=== PATIENT | male | born 1940 | race Caucasian/White ===

== ENCOUNTER 2016-05-28 07:28 | Inpatient (IN) | payer MEDICARE ==
[~2016-05-28] VITALS: Ht 172.7 cm; Wt 92.8 kg
[2016-05-28] MEDS ORDERED: SODIUM CHLORIDE FLUSH 10ML SYR IVF ONE (08:00)
[2016-05-28] MEDS ORDERED: SODIUM CHLORIDE 0.9% 1,000ML IVBOLUS ONE ×2 (08:00→09:00)
[2016-05-28 08:02] LABS: DAU SCREEN DISCLAIMER
[2016-05-28 08:12] LABS: ABG COLLECTION SITE RIGHT RADIAL; COLLATERAL CIRCULATION TESTING NORMAL
[2016-05-28 08:19] LABS: HEMOGLOBIN 19.6 g/dL (13.7-18.0)
[2016-05-28 08:22] LABS: ASPARTATE AMINO TRANSFERASE 12 U/L (15-37); BLOOD UREA NITROGEN 58 mg/dL (7-18)
[2016-05-28 08:35] LABS: IS PT STATUS REG ER OR PRE ER? YES
[2016-05-28] MEDS ORDERED: INSULIN REGULAR 100 UNITS/ML, 3ML VIAL IVPush ONE (09:00)
[2016-05-28] MEDS ORDERED: REGULAR INSULIN 62.5 UNITS in SODIUM CHLORIDE 0.9% 249.375 ML IV PRN ×2 (09:27→19:03)
[2016-05-28] MEDS ORDERED: INSULIN REGULAR 100 UNITS/ML, 3ML VIAL ONE (09:42)
[2016-05-28 12:11] LABS: BLOOD UREA NITROGEN 49 mg/dL (7-18)
[2016-05-28] MEDS ORDERED: ONDANSETRON 2MG/ML, 2ML IVP PRN (12:30)
[2016-05-28] MEDS ORDERED: DOCUSATE 100 MG CAPSULE PO PRN (12:30)
[2016-05-28] MEDS ORDERED: BISACODYL 10 MG SUPP PR PRN (12:30)
[2016-05-28] MEDS ORDERED: VANCOMYCIN PER PHARMACY MC PRN (12:30)
[2016-05-28] MEDS: SODIUM CHLORIDE 0.9% 1,000 ML IV SCH ×3 (12:56→22:25)
[2016-05-28] MEDS ORDERED: PHARMACOKINETIC CONSULTATION MC ONE (13:00)
[2016-05-28] MEDS ORDERED: PHARMACOKINETIC MONITORING MC PRN (13:00)
[2016-05-28] MEDS: ENOXAPARIN 40 MG/0.4 ML SQ SCH (13:12)
[2016-05-28] MEDS: INSULIN DETEMIR 100 UNITS/ML, PEN SQ-INSULIN SCH (13:14)
[2016-05-28] MEDS ORDERED: NALOXONE 0.4 MG/ML, 1ML ONE (13:16)
[2016-05-28] MEDS ORDERED: NALOXONE 0.4 MG/ML, 1ML IVPush ONE (13:30)
[2016-05-28] MEDS ORDERED: VANCOMYCIN 1,900 MG in SODIUM CHLORIDE 0.9% 250 ML IV ONE (14:00)
[2016-05-28] MEDS: PIPERACILLIN/TAZO/PMX 3.375GM 50 ML IV SCH ×2 (14:08→19:45)
[2016-05-28 16:01] LABS: IS PT STATUS REG ER OR PRE ER? NO
[2016-05-28 16:35] LABS: BLOOD UREA NITROGEN 44 mg/dL (7-18)
[2016-05-28] MEDS ORDERED: LISI2.5T PO (17:33)
[2016-05-28] MEDS ORDERED: HYDR-3307 PO (17:33)
[2016-05-28] MEDS ORDERED: DULO60CA55 PO (17:33)
[2016-05-28] MEDS ORDERED: METF500T4 PO (17:33)
[2016-05-28 17:34] VITALS: BP 148/76
[2016-05-28] MEDS: ASPIRIN 325 MG TABLET PO SCH (17:49)
[2016-05-28] MEDS: MORPHINE SULFATE 4 MG/ML, 1ML IVPush PRN (19:36)
[2016-05-28] MEDS: FAMOTIDINE 20 MG/2 ML IV SCH (20:41)
[2016-05-28] MEDS ORDERED: D5%-0.45% NACL 1,000 ML IV SCH ×2 (21:00)
[2016-05-28] MEDS ORDERED: ATORVASTATIN 20 MG TABLET PO SCH (21:00)
[2016-05-28 21:10] LABS: BLOOD UREA NITROGEN 42 mg/dL (7-18)
[2016-05-28 21:14] LABS: IS PT STATUS REG ER OR PRE ER? NO
[2016-05-28] MEDS ORDERED: SODIUM CHLORIDE 0.9% 1,000 ML IV SCH (22:30)
[2016-05-28] MEDS: INSULIN ASPART 100 UNITS/ML, PEN SQ-INSULIN SCH (23:06)
[2016-05-29] MEDS: MORPHINE SULFATE 4 MG/ML, 1ML IVPush PRN ×2 (01:01→06:37)
[2016-05-29] MEDS: PIPERACILLIN/TAZO/PMX 3.375GM 50 ML IV SCH ×4 (01:24→20:11)
[2016-05-29] MEDS: INSULIN ASPART 100 UNITS/ML, PEN SQ-INSULIN SCH ×6 (03:56→23:30)
[2016-05-29 04:00] VITALS: BP 128/71
[2016-05-29 05:19] LABS: HEMOGLOBIN 16.8 g/dL (13.7-18.0)
[2016-05-29 05:37] LABS: ASPARTATE AMINO TRANSFERASE 21 U/L (15-37); BLOOD UREA NITROGEN 36 mg/dL (7-18)
[2016-05-29] MEDS: ASPIRIN 325 MG TABLET PO SCH (06:17)
[2016-05-29 07:59] LABS: IS PT STATUS REG ER OR PRE ER? NO
[2016-05-29] MEDS: INSULIN DETEMIR 100 UNITS/ML, PEN SQ-INSULIN SCH (09:39)
[2016-05-29] MEDS: FAMOTIDINE 20 MG/2 ML IV SCH ×2 (09:40→20:12)
[2016-05-29] MEDS: SODIUM CHLORIDE 0.9% 1,000 ML IV SCH (11:20)
[2016-05-29] MEDS: ENOXAPARIN 40 MG/0.4 ML SQ SCH (13:54)
[2016-05-29] MEDS ORDERED: MIDAZOLAM 1 MG/ML, 5ML ONE (14:34)
[2016-05-29] MEDS: VANCOMYCIN 1,700 MG in SODIUM CHLORIDE 0.9% 250 ML IV SCH (16:22)
[2016-05-29] MEDS ORDERED: MIDAZOLAM 1 MG/ML, 2ML IVPush ONE (16:30)
[2016-05-29 19:37] VITALS: BP 125/81
[2016-05-29] MEDS: ATORVASTATIN 20 MG TABLET PO SCH (20:12)
[2016-05-30 01:16] VITALS: BP 147/95
[2016-05-30] MEDS: INSULIN ASPART 100 UNITS/ML, PEN SQ-INSULIN SCH ×6 (03:09→21:08)
[2016-05-30] MEDS: PIPERACILLIN/TAZO/PMX 3.375GM 50 ML IV SCH ×4 (03:09→21:08)
[2016-05-30] MEDS: SODIUM CHLORIDE 0.9% 1,000 ML IV SCH ×2 (04:14→21:10)
[2016-05-30] MEDS: ASPIRIN 325 MG TABLET PO SCH (06:16)
[2016-05-30 06:47] LABS: BLOOD UREA NITROGEN 24 mg/dL (7-18)
[2016-05-30 07:19] VITALS: BP 146/78
[2016-05-30 07:22] LABS: HEMOGLOBIN 17.2 g/dL (13.7-18.0)
[2016-05-30] MEDS: FAMOTIDINE 20 MG/2 ML IV SCH ×2 (08:38→21:18)
[2016-05-30] MEDS: INSULIN DETEMIR 100 UNITS/ML, PEN SQ-INSULIN SCH (08:38)
[2016-05-30] MEDS ORDERED: ASPIRIN 81 MG TABLET CHEW PO SCH (09:00)
[2016-05-30] MEDS: ENOXAPARIN 40 MG/0.4 ML SQ SCH (13:21)
[2016-05-30 13:43] VITALS: BP 112/71
[2016-05-30] MEDS: VANCOMYCIN 1,700 MG in SODIUM CHLORIDE 0.9% 250 ML IV SCH (15:40)
[2016-05-30 19:45] VITALS: BP 100/62
[2016-05-30] MEDS: ATORVASTATIN 20 MG TABLET PO SCH (21:18)
[2016-05-31] MEDS: PIPERACILLIN/TAZO/PMX 3.375GM 50 ML IV SCH ×4 (01:53→20:26)
[2016-05-31 02:55] VITALS: BP 105/64
[2016-05-31 06:50] VITALS: BP 98/59
[2016-05-31] MEDS: FAMOTIDINE 20 MG/2 ML IV SCH ×2 (09:10→20:10)
[2016-05-31] MEDS: CLOPIDOGREL 75 MG TABLET PO SCH (09:10)
[2016-05-31] MEDS: INSULIN DETEMIR 100 UNITS/ML, PEN SQ-INSULIN SCH (09:10)
[2016-05-31] MEDS: INSULIN ASPART 100 UNITS/ML, PEN SQ-INSULIN SCH ×4 (09:11→20:10)
[2016-05-31] MEDS: SODIUM CHLORIDE 0.9% 1,000 ML IV SCH ×2 (09:20→23:52)
[2016-05-31] MEDS: MORPHINE SULFATE 4 MG/ML, 1ML IVPush PRN (10:11)
[2016-05-31] MEDS: ENOXAPARIN 40 MG/0.4 ML SQ SCH (12:02)
[2016-05-31 15:00] VITALS: BP 119/80
[2016-05-31] MEDS: VANCOMYCIN 1,700 MG in SODIUM CHLORIDE 0.9% 250 ML IV SCH (15:54)
[2016-05-31 20:00] VITALS: BP 114/70
[2016-05-31] MEDS: ATORVASTATIN 20 MG TABLET PO SCH (20:10)
[2016-06-01 01:42] VITALS: BP 109/71
[2016-06-01] MEDS: PIPERACILLIN/TAZO/PMX 3.375GM 50 ML IV SCH ×2 (01:43→08:12)
[2016-06-01] MEDS: MORPHINE SULFATE 4 MG/ML, 1ML IVPush PRN ×4 (01:43→21:57)
[2016-06-01 04:30] VITALS: BP 137/86
[2016-06-01] MEDS ORDERED: NITROGLYCERIN 0.4 MG BOTTLE (25 TABS) SL PRN (04:30)
[2016-06-01] MEDS ORDERED: NITROGLYCERIN 0.4 MG/SPRAY SL PRN (04:30)
[2016-06-01] MEDS ORDERED: NITROGLYCERIN 0.4 MG/SPRAY ONE (04:34)
[2016-06-01 06:35] VITALS: BP 118/71
[2016-06-01] MEDS: CLOPIDOGREL 75 MG TABLET PO SCH (08:09)
[2016-06-01] MEDS: INSULIN ASPART 100 UNITS/ML, PEN SQ-INSULIN SCH ×4 (08:25→21:47)
[2016-06-01] MEDS: INSULIN DETEMIR 100 UNITS/ML, PEN SQ-INSULIN SCH (08:25)
[2016-06-01 09:45] LABS: IS PT STATUS REG ER OR PRE ER? NO
[2016-06-01] MEDS: FAMOTIDINE 20 MG TABLET PO SCH ×2 (12:35→21:46)
[2016-06-01] MEDS: ENOXAPARIN 40 MG/0.4 ML SQ SCH (12:35)
[2016-06-01] MEDS: SODIUM CHLORIDE 0.9% 1,000 ML IV SCH (12:42)
[2016-06-01] MEDS ORDERED: CALAMINE LOTION 180ML TP PRN (14:00)
[2016-06-01 14:35] VITALS: BP 129/83
[2016-06-01 15:15] LABS: IS PT STATUS REG ER OR PRE ER? NO
[2016-06-01] MEDS: GABAPENTIN 100 MG CAPSULE PO SCH ×2 (15:15→21:46)
[2016-06-01] MEDS: VANCOMYCIN 1,700 MG in SODIUM CHLORIDE 0.9% 250 ML IV SCH (15:15)
[2016-06-01 20:00] VITALS: BP 139/84
[2016-06-01] MEDS: ATORVASTATIN 40 MG TABLET PO SCH (21:00)
[2016-06-02 02:00] VITALS: BP 144/87
[2016-06-02] MEDS: SODIUM CHLORIDE 0.9% 1,000 ML IV SCH (05:07)
[2016-06-02] MEDS: MORPHINE SULFATE 4 MG/ML, 1ML IVPush PRN ×2 (05:49→18:12)
[2016-06-02 05:54] LABS: HEMOGLOBIN 15.5 g/dL (13.7-18.0)
[2016-06-02 06:05] LABS: BLOOD UREA NITROGEN 15 mg/dL (7-18)
[2016-06-02 07:33] VITALS: BP 131/68
[2016-06-02] MEDS: GABAPENTIN 100 MG CAPSULE PO SCH ×3 (08:14→21:01)
[2016-06-02] MEDS: CLOPIDOGREL 75 MG TABLET PO SCH (08:14)
[2016-06-02] MEDS: INSULIN ASPART 100 UNITS/ML, PEN SQ-INSULIN SCH ×4 (08:14→21:02)
[2016-06-02] MEDS: INSULIN DETEMIR 100 UNITS/ML, PEN SQ-INSULIN SCH (08:14)
[2016-06-02] MEDS: FAMOTIDINE 20 MG TABLET PO SCH ×2 (08:14→21:01)
[2016-06-02] MEDS: ENOXAPARIN 40 MG/0.4 ML SQ SCH (11:25)
[2016-06-02] MEDS: VANCOMYCIN 1,700 MG in SODIUM CHLORIDE 0.9% 250 ML IV SCH (16:22)
[2016-06-02 19:48] VITALS: BP 144/89
[2016-06-02] MEDS: ATORVASTATIN 40 MG TABLET PO SCH (21:01)
[2016-06-02] MEDS: POLYETHYLENE GLYCOL 17 GM PACKET PO PRN (21:01)
[2016-06-03] MEDS: MORPHINE SULFATE 4 MG/ML, 1ML IVPush PRN (01:23)
[2016-06-03 01:56] VITALS: BP 152/73
[2016-06-03 07:47] VITALS: BP 116/60
[2016-06-03] MEDS: INSULIN ASPART 100 UNITS/ML, PEN SQ-INSULIN SCH ×4 (08:08→22:12)
[2016-06-03] MEDS: HYDROcodone/APAP 5/325 TABLET PO PRN ×2 (08:08→22:15)
[2016-06-03] MEDS: INSULIN DETEMIR 100 UNITS/ML, PEN SQ-INSULIN SCH (08:09)
[2016-06-03] MEDS: GABAPENTIN 100 MG CAPSULE PO SCH ×3 (08:10→22:08)
[2016-06-03] MEDS: FAMOTIDINE 20 MG TABLET PO SCH ×2 (08:10→22:08)
[2016-06-03] MEDS: CLOPIDOGREL 75 MG TABLET PO SCH (08:10)
[2016-06-03] MEDS: ENOXAPARIN 40 MG/0.4 ML SQ SCH (12:22)
[2016-06-03 12:51] VITALS: BP 130/86
[2016-06-03] MEDS: VANCOMYCIN 1,700 MG in SODIUM CHLORIDE 0.9% 250 ML IV SCH (15:45)
[2016-06-03] MEDS: ATORVASTATIN 40 MG TABLET PO SCH (22:08)
[2016-06-04 03:43] VITALS: BP 122/68
[2016-06-04 06:37] VITALS: BP 126/80
[2016-06-04] MEDS: CLOPIDOGREL 75 MG TABLET PO SCH (09:47)
[2016-06-04] MEDS: INSULIN ASPART 100 UNITS/ML, PEN SQ-INSULIN SCH ×4 (09:47→21:45)
[2016-06-04] MEDS: GABAPENTIN 100 MG CAPSULE PO SCH ×3 (09:47→21:43)
[2016-06-04] MEDS: INSULIN DETEMIR 100 UNITS/ML, PEN SQ-INSULIN SCH (09:47)
[2016-06-04] MEDS: FAMOTIDINE 20 MG TABLET PO SCH ×2 (09:48→21:43)
[2016-06-04] MEDS: HYDROcodone/APAP 5/325 TABLET PO PRN ×3 (09:52→21:43)
[2016-06-04] MEDS: ENOXAPARIN 40 MG/0.4 ML SQ SCH (11:41)
[2016-06-04 13:14] VITALS: BP 142/79
[2016-06-04] MEDS: VANCOMYCIN 1,700 MG in SODIUM CHLORIDE 0.9% 250 ML IV SCH (15:15)
[2016-06-04 19:53] VITALS: BP 118/74
[2016-06-04] MEDS: ATORVASTATIN 40 MG TABLET PO SCH (21:43)
[2016-06-04] MEDS: POLYETHYLENE GLYCOL 17 GM PACKET PO PRN (22:16)
[2016-06-05 02:13] VITALS: BP 136/85
[2016-06-05 08:00] VITALS: BP 131/89
[2016-06-05] MEDS ORDERED: GABAPENTIN 100 MG CAPSULE PO SCH (09:00)
[2016-06-05] MEDS: FAMOTIDINE 20 MG TABLET PO SCH (09:31)
[2016-06-05] MEDS: INSULIN DETEMIR 100 UNITS/ML, PEN SQ-INSULIN SCH (09:31)
[2016-06-05] MEDS: INSULIN ASPART 100 UNITS/ML, PEN SQ-INSULIN SCH ×2 (09:31→12:07)
[2016-06-05] MEDS: CLOPIDOGREL 75 MG TABLET PO SCH (09:31)
[2016-06-05] MEDS: ENOXAPARIN 40 MG/0.4 ML SQ SCH (12:02)
[2016-06-05] MEDS: VANCOMYCIN 1,700 MG in SODIUM CHLORIDE 0.9% 250 ML IV SCH (15:09)
[2016-06-05 15:40] VITALS: BP 134/89
[2016-06-05] MEDS: HYDROcodone/APAP 5/325 TABLET PO PRN (15:42)
[2016-06-05] MEDS ORDERED: VANC1VIA3 IV (15:50)
[2016-06-05] MEDS ORDERED: GABA100C8 PO (15:50)
[2016-06-05] MEDS ORDERED: ENOX40SY4 SQ (15:50)
[2016-06-05] MEDS ORDERED: CLOP75TA PO (15:50)
[2016-06-05] MEDS ORDERED: DOCU-30 PO (15:50)
[2016-06-05] MEDS ORDERED: HYDR-3240 PO (15:50)
[2016-06-05] MEDS ORDERED: CALA118S2 TP (15:50)
[2016-06-05] MEDS ORDERED: INSU100I28 SQ-INSULIN (15:50)
[2016-06-05] MEDS ORDERED: INSU100I18 SQ-INSULIN (15:50)
[2016-06-05] MEDS ORDERED: FAMO20TA7 PO (15:50)
[2016-06-05] MEDS ORDERED: BISA10SU65 PR (15:50)
[2016-06-05] MEDS ORDERED: ATOR40TA78 PO (15:50)
== END 2016-06-05 17:27 | DRG 871 ==
LOC: ED 07:49 → EDIP 09:38 → CCU 12:00 → 5SO 05-29 19:03 → 4EST 06-01 17:58
PROVIDERS: ADMIT Hospitalist; ATTEND Hospitalist
PROC: 0T9B70Z Drainage of Bladder with Drainage Device, Via Natural or Artificial Opening (ICD-10-PCS; 2016-05-28)
PROC: 02HV33Z Insertion of Infusion Device into Superior Vena Cava, Percutaneous Approach (ICD-10-PCS; principal; 2016-06-04)
PROC: B548ZZA Ultrasonography of Superior Vena Cava, Guidance (ICD-10-PCS; 2016-06-04)
DX: A41.9 Sepsis, unspecified organism (principal); I63.9 Cerebral infarction, unspecified; E13.10 Other specified diabetes mellitus with ketoacidosis without coma; G93.41 Metabolic encephalopathy; E87.1 Hypo-osmolality and hyponatremia; J98.11 Atelectasis; N17.9 Acute kidney failure, unspecified; R47.01 Aphasia; E11.40 Type 2 diabetes mellitus with diabetic neuropathy, unspecified; E78.5 Hyperlipidemia, unspecified; B95.7 Other staphylococcus as the cause of diseases classified elsewhere; F32.9 Major depressive disorder, single episode, unspecified; E86.0 Dehydration; E87.5 Hyperkalemia; E87.8 Other disorders of electrolyte and fluid balance, not elsewhere classified; I10 Essential (primary) hypertension; L30.9 Dermatitis, unspecified; Z91.19 Patient's noncompliance with other medical treatment and regimen; Z91.14 Patient's other noncompliance with medication regimen
CPT/HCPCS: 36415; 36569; 36600; 51702; 70450; 70544; 70551; 71010; 76937; 77001; 80048; 80053; 80061; 80202; 80307; 81001; 82010; 82140; 82533; 82550; 82607; 82746; 82803; 82962; 83036; 83605; 83690; 83735; 83880; 84443; 84484; 85025; 85610; 85651; 86140; 87040; 87077; 87081; 87186; 93005; 93306; 93880; 96360; 96361; J1650; J1815; J2250; J2310; J2543; J3370; 92523-GN; C1751; J7030; J7050; S0028

== ENCOUNTER 2016-09-18 03:20 | Inpatient (IN) | payer MEDICARE ==
[~2016-09-18] VITALS: Ht 182.9 cm; Wt 82.2 kg
[~2016-09-18 03:20] MED LIST: ATOR40TA78 PO; BISA10SU65 PR; CALA118S2 TP; CLOP75TA PO; DOCU-30 PO; DULO60CA55 PO; ENOX40SY4 SQ; FAMO20TA7 PO; GABA-826 PO; HYDR-3240 PO; HYDR-3307 PO; INSU100I18 SQ-INSULIN; INSU100I28 SQ-INSULIN; LISI2.5T PO; METF500T4 PO; VANC1VIA3 IV
[2016-09-18] MEDS ORDERED: SODIUM CHLORIDE 0.9% 1,000ML IVBOLUS ONE ×2 (03:30→04:30)
[2016-09-18] MEDS ORDERED: LORazepam 2 MG/ML, 1ML ONE ×2 (03:46→05:54)
[2016-09-18] MEDS ORDERED: ONDANSETRON 2MG/ML, 2ML ONE (03:54)
[2016-09-18 03:59] LABS: ASPARTATE AMINO TRANSFERASE 26 U/L (15-37); BLOOD UREA NITROGEN 18 mg/dL (7-18)
[2016-09-18] MEDS ORDERED: ONDANSETRON 2MG/ML, 2ML IVPush ONE (04:00)
[2016-09-18 04:03] LABS: ACETAMINOPHEN < 2 mcg/mL (10-30)
[2016-09-18] MEDS ORDERED: methylPREDNISolone SOD SUCC 125 MG/2 ML ONE (04:15)
[2016-09-18] MEDS ORDERED: CEFTRIAXONE PMX 1GM/50ML 50 ML ONE (04:15)
[2016-09-18 04:18] LABS: DAU SCREEN DISCLAIMER
[2016-09-18] MEDS ORDERED: CEFTRIAXONE PMX 2GM/50ML 50 ML IV ONE (04:30)
[2016-09-18] MEDS ORDERED: SODIUM CHLORIDE FLUSH 10ML SYR IVF ONE (04:30)
[2016-09-18] MEDS ORDERED: VANCOMYCIN PER PHARMACY IV ONE (04:30)
[2016-09-18] MEDS ORDERED: methylPREDNISolone SOD SUCC 125 MG/2 ML IVPush ONE (04:30)
[2016-09-18] MEDS ORDERED: CEFTRIAXONE PMX 2GM/50ML 50 ML ONE (04:33)
[2016-09-18] MEDS ORDERED: VANCOMYCIN 1,700 MG in SODIUM CHLORIDE 0.9% 250 ML IV ONE (05:00)
[2016-09-18 05:22] LABS: GLUCOSE, CSF 91 mg/dL (40-80)
[2016-09-18 05:44] LABS: ABG COLLECTION SITE RIGHT RADIAL; COLLATERAL CIRCULATION TESTING NORMAL
[2016-09-18] MEDS ORDERED: INSU100C5 SQ-INSULIN (05:45)
[2016-09-18] MEDS ORDERED: ENALAPRILAT 1.25 MG/ML, 2ML IVPush PRN (06:00)
[2016-09-18] MEDS ORDERED: LABETALOL 5MG/ML, 20ML IVPush PRN (06:00)
[2016-09-18] MEDS ORDERED: ONDANSETRON 2MG/ML, 2ML IVPush PRN (06:00)
[2016-09-18] MEDS ORDERED: PHARMACY MAY ADJ FOR RENAL FX MC PRN (06:00)
[2016-09-18] MEDS ORDERED: LORazepam 2 MG/ML, 1ML IVPush PRN (06:00)
[2016-09-18 06:54] LABS: IS PT STATUS REG ER OR PRE ER? NO
[2016-09-18] MEDS: SODIUM CHLORIDE 0.9% 1,000 ML IV SCH ×2 (07:19→12:36)
[2016-09-18] MEDS: LEVETIRACETAM 500 MG in SODIUM CHLORIDE 0.9% 100 ML IV SCH ×2 (07:19→18:28)
[2016-09-18] MEDS: FAMOTIDINE 20 MG/2 ML IVPush SCH ×2 (09:07→20:57)
[2016-09-18] MEDS: PIPERACILLIN/TAZO/PMX 3.375GM 50 ML IV SCH ×3 (09:07→19:33)
[2016-09-18 12:21] LABS: IS PT STATUS REG ER OR PRE ER? NO
[2016-09-18] MEDS ORDERED: HALOPERIDOL 5 MG/ML IV PRN (18:00)
[2016-09-18] MEDS ORDERED: VANCOMYCIN PER PHARMACY MC PRN (18:30)
[2016-09-18 18:43] LABS: BLOOD UREA NITROGEN 13 mg/dL (7-18)
[2016-09-18 18:48] LABS: IS PT STATUS REG ER OR PRE ER? NO
[2016-09-18] MEDS ORDERED: PHARMACOKINETIC MONITORING MC PRN (19:00)
[2016-09-18] MEDS: INSULIN DETEMIR 100 UNITS/ML, PEN SQ-INSULIN SCH (19:33)
[2016-09-18] MEDS: ENOXAPARIN 40 MG/0.4 ML SQ SCH (20:52)
[2016-09-18] MEDS: VANCOMYCIN 1,700 MG in SODIUM CHLORIDE 0.9% 250 ML IV SCH (20:52)
[2016-09-18] MEDS ORDERED: LORazepam 2 MG/ML, 1ML IVPush ONE (23:30)
[2016-09-19] MEDS: PIPERACILLIN/TAZO/PMX 3.375GM 50 ML IV SCH ×4 (01:29→19:24)
[2016-09-19 04:00] VITALS: BP 126/72
[2016-09-19 04:28] LABS: ASPARTATE AMINO TRANSFERASE 34 U/L (15-37); BLOOD UREA NITROGEN 13 mg/dL (7-18)
[2016-09-19 04:45] LABS: IS PT STATUS REG ER OR PRE ER? NO
[2016-09-19] MEDS: LEVETIRACETAM 500 MG in SODIUM CHLORIDE 0.9% 100 ML IV SCH ×2 (06:13→17:56)
[2016-09-19] MEDS: SODIUM CHLORIDE 0.9% 1,000 ML IV SCH ×3 (06:19→21:47)
[2016-09-19] MEDS: FAMOTIDINE 20 MG/2 ML IVPush SCH ×2 (08:44→20:34)
[2016-09-19] MEDS: INSULIN DETEMIR 100 UNITS/ML, PEN SQ-INSULIN SCH (19:27)
[2016-09-19] MEDS: ENOXAPARIN 40 MG/0.4 ML SQ SCH (20:34)
[2016-09-19] MEDS: VANCOMYCIN 1,700 MG in SODIUM CHLORIDE 0.9% 250 ML IV SCH (20:34)
[2016-09-19] MEDS: INSULIN ASPART 100 UNITS/ML, PEN SQ-INSULIN SCH (20:37)
[2016-09-19] MEDS ORDERED: INSULIN ASPART 100 UNITS/ML, PEN SQ-INSULIN SCH (21:00)
[2016-09-20] MEDS: PIPERACILLIN/TAZO/PMX 3.375GM 50 ML IV SCH (03:00)
[2016-09-20] MEDS: INSULIN ASPART 100 UNITS/ML, PEN SQ-INSULIN SCH ×4 (03:00→21:00)
[2016-09-20 04:11] VITALS: BP 157/105
[2016-09-20] MEDS: SODIUM CHLORIDE 0.9% 1,000 ML IV SCH (05:21)
[2016-09-20] MEDS: LEVETIRACETAM 500 MG in SODIUM CHLORIDE 0.9% 100 ML IV SCH ×2 (05:43→17:40)
[2016-09-20] MEDS: INSULIN DETEMIR 100 UNITS/ML, PEN SQ-INSULIN SCH (07:45)
[2016-09-20 08:16] LABS: BLOOD UREA NITROGEN 10 mg/dL (7-18)
[2016-09-20] MEDS: AMPICILLIN/SULBACTAM 3 GM in SODIUM CHLORIDE 0.9% 100 ML IV SCH ×3 (09:40→23:05)
[2016-09-20] MEDS: DULOXETINE 30 MG CAPSULE.DR PO SCH (09:43)
[2016-09-20] MEDS: GABAPENTIN 100 MG CAPSULE PO SCH ×3 (09:43→23:05)
[2016-09-20] MEDS: CLOPIDOGREL 75 MG TABLET PO SCH (09:43)
[2016-09-20] MEDS: FAMOTIDINE 20 MG TABLET PO SCH ×2 (09:43→23:05)
[2016-09-20] MEDS ORDERED: POTASSIUM CHLORIDE 20 MEQ TAB.ER.PRT PO ONE (10:30)
[2016-09-20 10:35] VITALS: BP 154/104
[2016-09-20 13:32] VITALS: BP 132/86
[2016-09-20 19:47] VITALS: BP 133/88
[2016-09-20] MEDS: ATORVASTATIN 40 MG TABLET PO SCH (23:05)
[2016-09-20] MEDS: ENOXAPARIN 40 MG/0.4 ML SQ SCH (23:34)
[2016-09-21 02:00] VITALS: BP 150/95
[2016-09-21] MEDS: INSULIN ASPART 100 UNITS/ML, PEN SQ-INSULIN SCH ×4 (03:00→20:18)
[2016-09-21] MEDS: AMPICILLIN/SULBACTAM 3 GM in SODIUM CHLORIDE 0.9% 100 ML IV SCH ×3 (05:36→20:21)
[2016-09-21] MEDS ORDERED: SODIUM CHLORIDE 0.9% 1,000 ML IV SCH (05:42)
[2016-09-21 05:48] VITALS: BP 142/90
[2016-09-21] MEDS: LEVETIRACETAM 500 MG in SODIUM CHLORIDE 0.9% 100 ML IV SCH ×2 (06:40→20:02)
[2016-09-21 06:50] VITALS: BP 152/92
[2016-09-21] MEDS: FAMOTIDINE 20 MG TABLET PO SCH (08:54)
[2016-09-21] MEDS: CLOPIDOGREL 75 MG TABLET PO SCH (08:54)
[2016-09-21] MEDS: INSULIN DETEMIR 100 UNITS/ML, PEN SQ-INSULIN SCH (08:54)
[2016-09-21] MEDS: GABAPENTIN 100 MG CAPSULE PO SCH ×3 (08:54→20:02)
[2016-09-21] MEDS: DULOXETINE 30 MG CAPSULE.DR PO SCH (08:54)
[2016-09-21 09:19] VITALS: BP_SYST 141; BP_SYST 152; BP_DIAS 92; BP_DIAS 94
[2016-09-21 13:20] VITALS: BP_SYST 143; BP_SYST 147; BP_DIAS 95; BP_DIAS 99
[2016-09-21] MEDS: ATORVASTATIN 40 MG TABLET PO SCH (20:02)
[2016-09-21] MEDS: ENOXAPARIN 40 MG/0.4 ML SQ SCH (20:02)
[2016-09-21 20:38] VITALS: BP 147/85
[2016-09-22 00:39] VITALS: BP 153/97
[2016-09-22] MEDS: AMPICILLIN/SULBACTAM 3 GM in SODIUM CHLORIDE 0.9% 100 ML IV SCH ×4 (02:06→20:21)
[2016-09-22 05:07] LABS: BLOOD UREA NITROGEN 15 mg/dL (7-18)
[2016-09-22 05:11] LABS: ASPARTATE AMINO TRANSFERASE 44 U/L (15-37)
[2016-09-22 06:33] VITALS: BP 133/84
[2016-09-22] MEDS: INSULIN ASPART 100 UNITS/ML, PEN SQ-INSULIN SCH ×4 (07:00→20:22)
[2016-09-22] MEDS: GABAPENTIN 100 MG CAPSULE PO SCH ×3 (08:30→20:22)
[2016-09-22] MEDS: CLOPIDOGREL 75 MG TABLET PO SCH (08:30)
[2016-09-22] MEDS: INSULIN DETEMIR 100 UNITS/ML, PEN SQ-INSULIN SCH (08:30)
[2016-09-22] MEDS: LEVETIRACETAM 500 MG in SODIUM CHLORIDE 0.9% 100 ML IV SCH ×2 (08:30→20:21)
[2016-09-22] MEDS: DULOXETINE 30 MG CAPSULE.DR PO SCH (08:31)
[2016-09-22 13:30] VITALS: BP 142/92
[2016-09-22 19:46] VITALS: BP 131/78
[2016-09-22] MEDS: ENOXAPARIN 40 MG/0.4 ML SQ SCH (20:21)
[2016-09-22] MEDS: ATORVASTATIN 40 MG TABLET PO SCH (20:21)
[2016-09-23] VITALS: BP 121/65
[2016-09-23] MEDS: AMPICILLIN/SULBACTAM 3 GM in SODIUM CHLORIDE 0.9% 100 ML IV SCH ×2 (02:32→07:57)
[2016-09-23] MEDS: IBUPROFEN 200 MG TABLET PO PRN ×2 (04:32→20:16)
[2016-09-23] MEDS: LEVETIRACETAM 500 MG in SODIUM CHLORIDE 0.9% 100 ML IV SCH ×2 (07:57→20:16)
[2016-09-23 08:15] VITALS: BP 127/76
[2016-09-23] MEDS: INSULIN ASPART 100 UNITS/ML, PEN SQ-INSULIN SCH ×4 (08:15→21:40)
[2016-09-23] MEDS: GABAPENTIN 100 MG CAPSULE PO SCH ×3 (08:23→20:16)
[2016-09-23] MEDS: CLOPIDOGREL 75 MG TABLET PO SCH (08:23)
[2016-09-23] MEDS: DULOXETINE 30 MG CAPSULE.DR PO SCH (08:23)
[2016-09-23] MEDS: INSULIN DETEMIR 100 UNITS/ML, PEN SQ-INSULIN SCH (08:24)
[2016-09-23 13:05] VITALS: BP 140/87
[2016-09-23 19:07] VITALS: BP 157/85
[2016-09-23] MEDS: ENOXAPARIN 40 MG/0.4 ML SQ SCH (20:16)
[2016-09-23] MEDS: ATORVASTATIN 40 MG TABLET PO SCH (20:16)
[2016-09-24 01:31] VITALS: BP 140/16
[2016-09-24] MEDS: IBUPROFEN 200 MG TABLET PO PRN ×3 (05:22→20:20)
[2016-09-24 07:40] VITALS: BP 133/80
[2016-09-24] MEDS: INSULIN ASPART 100 UNITS/ML, PEN SQ-INSULIN SCH ×4 (07:55→20:34)
[2016-09-24] MEDS: LEVETIRACETAM 500 MG in SODIUM CHLORIDE 0.9% 100 ML IV SCH ×2 (07:59→20:19)
[2016-09-24] MEDS: DULOXETINE 30 MG CAPSULE.DR PO SCH (09:19)
[2016-09-24] MEDS: CLOPIDOGREL 75 MG TABLET PO SCH (09:20)
[2016-09-24] MEDS: GABAPENTIN 100 MG CAPSULE PO SCH ×3 (09:21→20:19)
[2016-09-24] MEDS: INSULIN DETEMIR 100 UNITS/ML, PEN SQ-INSULIN SCH (09:22)
[2016-09-24 14:00] VITALS: BP 109/67
[2016-09-24 19:30] VITALS: BP 135/86
[2016-09-24] MEDS: ENOXAPARIN 40 MG/0.4 ML SQ SCH (20:19)
[2016-09-24] MEDS: ATORVASTATIN 40 MG TABLET PO SCH (20:20)
[2016-09-25] MEDS: IBUPROFEN 200 MG TABLET PO PRN ×3 (03:16→22:04)
[2016-09-25 03:17] VITALS: BP 156/91
[2016-09-25 06:06] LABS: BLOOD UREA NITROGEN 16 mg/dL (7-18)
[2016-09-25 06:42] VITALS: BP 142/97
[2016-09-25] MEDS: INSULIN ASPART 100 UNITS/ML, PEN SQ-INSULIN SCH ×4 (08:00→21:01)
[2016-09-25] MEDS: LEVETIRACETAM 500 MG in SODIUM CHLORIDE 0.9% 100 ML IV SCH (08:02)
[2016-09-25] MEDS ORDERED: ACETAMINOPHEN 325 MG TABLET ONE (09:23)
[2016-09-25] MEDS: INSULIN DETEMIR 100 UNITS/ML, PEN SQ-INSULIN SCH (09:26)
[2016-09-25] MEDS: DULOXETINE 30 MG CAPSULE.DR PO SCH (09:27)
[2016-09-25] MEDS: CLOPIDOGREL 75 MG TABLET PO SCH (09:27)
[2016-09-25] MEDS: GABAPENTIN 100 MG CAPSULE PO SCH ×3 (09:27→21:01)
[2016-09-25] MEDS ORDERED: ACETAMINOPHEN 325 MG TABLET PO PRN (09:30)
[2016-09-25 15:23] VITALS: BP 114/67
[2016-09-25] MEDS: ENOXAPARIN 40 MG/0.4 ML SQ SCH (21:00)
[2016-09-25] MEDS: LEVETIRACETAM 500 MG TABLET PO SCH (21:01)
[2016-09-25] MEDS: ATORVASTATIN 40 MG TABLET PO SCH (21:01)
[2016-09-25 21:44] VITALS: BP 138/81
[2016-09-26 01:48] VITALS: BP 135/66
[2016-09-26] MEDS: INSULIN ASPART 100 UNITS/ML, PEN SQ-INSULIN SCH ×2 (07:00→12:39)
[2016-09-26] MEDS: DULOXETINE 30 MG CAPSULE.DR PO SCH (08:34)
[2016-09-26] MEDS: GABAPENTIN 100 MG CAPSULE PO SCH (08:34)
[2016-09-26] MEDS: LEVETIRACETAM 500 MG TABLET PO SCH (08:34)
[2016-09-26] MEDS: CLOPIDOGREL 75 MG TABLET PO SCH (08:34)
[2016-09-26] MEDS: INSULIN DETEMIR 100 UNITS/ML, PEN SQ-INSULIN SCH (08:35)
[2016-09-26 08:46] VITALS: BP 145/94
[2016-09-26] MEDS ORDERED: LEVE500T53 PO (12:10)
== END 2016-09-26 14:43 | disposition home health service (06) | DRG 91 ==
LOC: ED 03:28 → EDIP 05:00 → CCU 06:37 → 5SO 09-20 10:32 → 4WST 09-20 18:10
PROVIDERS: ADMIT Internal Medicine; ATTEND Internal Medicine
PROC: 009U3ZX Drainage of Spinal Canal, Percutaneous Approach, Diagnostic (ICD-10-PCS; principal; 2016-09-18)
DX: G92 Toxic encephalopathy (principal); J69.0 Pneumonitis due to inhalation of food and vomit; E87.2 Acidosis; G40.209 Localization-related (focal) (partial) symptomatic epilepsy and epileptic syndromes with complex partial seizures, not intractable, without status epilepticus; G40.909 Epilepsy, unspecified, not intractable, without status epilepticus; B95.62 Methicillin resistant Staphylococcus aureus infection as the cause of diseases classified elsewhere; D72.829 Elevated white blood cell count, unspecified; D75.89 Other specified diseases of blood and blood-forming organs; E86.0 Dehydration; E11.65 Type 2 diabetes mellitus with hyperglycemia; E11.43 Type 2 diabetes mellitus with diabetic autonomic (poly)neuropathy; I10 Essential (primary) hypertension; T42.6X5A Adverse effect of other antiepileptic and sedative-hypnotic drugs, initial encounter; I73.9 Peripheral vascular disease, unspecified; Z79.899 Other long term (current) drug therapy; I69.320 Aphasia following cerebral infarction; Y92.89 Other specified places as the place of occurrence of the external cause; E11.40 Type 2 diabetes mellitus with diabetic neuropathy, unspecified; E11.21 Type 2 diabetes mellitus with diabetic nephropathy
CPT/HCPCS: 36415; 36600; 62270; 70450; 70551; 71010; 80048; 80053; 80307; 80329; 81001; 82140; 82550; 82803; 82945; 82962; 83605; 83735; 84100; 84145; 84157; 84443; 84484; 85025; 85610; 85730; 87040; 87070; 87081; 87147; 87205; 87252; 89051; 92950; 93005; 95816; 95819; 96365; 96366; 96368; 96375; J0295; J0696; J1650; J1815; J1953; J2405; J2543; J3370; 92523-GN; G0480; J1630; J2060; J2930; J7030; J7050; S0028

== ENCOUNTER 2016-11-10 20:57 | Inpatient (IN) | payer MEDICARE ==
[~2016-11-10] VITALS: Ht 172.7 cm; Wt 81.2 kg
[~2016-11-10 20:57] MED LIST changes: +DOCU-131 PO; -DOCU-30 PO; +INSU100C5 SQ-INSULIN; +LEVE500T53 PO
[2016-11-10 21:20] LABS: HEMATOCRIT 49.6 % (39.2-51.8); HEMOGLOBIN 16.4 g/dL (13.7-18.0); WHITE BLOOD COUNT 13.8 x10^3/uL (3.4-10)
[2016-11-10] MEDS ORDERED: PLEASE ENTER HEIGHT AND WEIGHT MC SCH (21:30)
[2016-11-10] MEDS ORDERED: SODIUM CHLORIDE FLUSH 10ML SYR IVF ONE (21:30)
[2016-11-10 21:32] LABS: BLOOD UREA NITROGEN 23 mg/dL (7-18)
[2016-11-10 21:37] LABS: ACETAMINOPHEN < 2 mcg/mL (10-30); ASPARTATE AMINO TRANSFERASE 25 U/L (15-37); IS PT STATUS REG ER OR PRE ER? YES
[2016-11-10] MEDS ORDERED: LEVETIRACETAM 1,000 MG in SODIUM CHLORIDE 0.9% 100 ML IV ONE (22:00)
[2016-11-10] MEDS: FAMOTIDINE 20 MG TABLET PO SCH (23:30)
[2016-11-10] MEDS: ATORVASTATIN 40 MG TABLET PO SCH (23:30)
[2016-11-10] MEDS: metFORMIN 500 MG TABLET PO SCH (23:30)
[2016-11-10] MEDS ORDERED: ONDANSETRON 2MG/ML, 2ML IVPush PRN (23:30)
[2016-11-10] MEDS ORDERED: POLYETHYLENE GLYCOL 17 GM PACKET PO PRN (23:30)
[2016-11-10] MEDS ORDERED: SODIUM CHLORIDE FLUSH 10ML SYR IVF PRN (23:30)
[2016-11-10] MEDS: GABAPENTIN 100 MG CAPSULE PO SCH (23:30)
[2016-11-10] MEDS ORDERED: BISACODYL 10 MG SUPP PR PRN (23:30)
[2016-11-10] MEDS ORDERED: TEMPLATE NON-FORMULARY MED. (Insulin Aspart** (Novolog**) 0 UNITS) SQ-INSULIN SCH (23:30)
[2016-11-10 23:31] LABS: DAU SCREEN DISCLAIMER
[2016-11-10] MEDS ORDERED: LISI2.5T PO (23:35)
[2016-11-10] MEDS ORDERED: ASPI-496 PO (23:38)
[2016-11-10] MEDS ORDERED: LEVO100T5 PO (23:38)
[2016-11-11] VITALS (17 sets, daily range): BP systolic 135–158; BP diastolic 81–109
[2016-11-11] MEDS: INSULIN ASPART 100 UNITS/ML, PEN SQ-INSULIN SCH ×6 (00:30→20:40)
[2016-11-11] MEDS ORDERED: LORazepam 2 MG/ML, 1ML ONE (00:41)
[2016-11-11] MEDS ORDERED: LORazepam 2 MG/ML, 1ML IVPush ONE (01:00)
[2016-11-11] MEDS ORDERED: LORazepam 2 MG/ML, 1ML IVPush PRN (01:00)
[2016-11-11] MEDS: SODIUM CHLORIDE 0.9% 1,000 ML IV SCH ×2 (01:05→12:01)
[2016-11-11 03:16] LABS: HEMATOCRIT 47.4 % (39.2-51.8); HEMOGLOBIN 15.3 g/dL (13.7-18.0); WHITE BLOOD COUNT 12.9 x10^3/uL (3.4-10)
[2016-11-11 03:27] LABS: ASPARTATE AMINO TRANSFERASE 16 U/L (15-37); BLOOD UREA NITROGEN 19 mg/dL (7-18)
[2016-11-11] MEDS ORDERED: LEVETIRACETAM 500 MG in SODIUM CHLORIDE 0.9% 100 ML IV SCH (09:00)
[2016-11-11] MEDS ORDERED: LEVETIRACETAM 500 MG TABLET PO SCH (09:00)
[2016-11-11] MEDS: INSULIN DETEMIR 100 UNITS/ML, PEN SQ-INSULIN SCH (12:02)
[2016-11-11] MEDS: metFORMIN 500 MG TABLET PO SCH ×2 (12:03→20:14)
[2016-11-11] MEDS: GABAPENTIN 100 MG CAPSULE PO SCH ×3 (12:03→20:14)
[2016-11-11] MEDS: CLOPIDOGREL 75 MG TABLET PO SCH (12:03)
[2016-11-11] MEDS: ACETAMINOPHEN 325 MG TABLET PO PRN ×2 (12:03→20:15)
[2016-11-11] MEDS: DULOXETINE 30 MG CAPSULE.DR PO SCH (12:03)
[2016-11-11] MEDS: FAMOTIDINE 20 MG TABLET PO SCH ×2 (12:03→20:40)
[2016-11-11] MEDS: ATORVASTATIN 40 MG TABLET PO SCH (20:14)
[2016-11-12 01:21] VITALS: BP 169/100
[2016-11-12 01:27] VITALS: BP 159/96
[2016-11-12 03:56] LABS: HEMATOCRIT 46.9 % (39.2-51.8); HEMOGLOBIN 15.4 g/dL (13.7-18.0); WHITE BLOOD COUNT 10.5 x10^3/uL (3.4-10)
[2016-11-12 04:40] LABS: BLOOD UREA NITROGEN 12 mg/dL (7-18)
[2016-11-12 08:05] VITALS: BP 148/85
[2016-11-12] MEDS: FAMOTIDINE 20 MG TABLET PO SCH ×2 (08:35→21:27)
[2016-11-12] MEDS: CLOPIDOGREL 75 MG TABLET PO SCH (08:35)
[2016-11-12] MEDS: GABAPENTIN 100 MG CAPSULE PO SCH ×3 (08:36→21:27)
[2016-11-12] MEDS: metFORMIN 500 MG TABLET PO SCH ×2 (08:36→21:26)
[2016-11-12] MEDS: DULOXETINE 30 MG CAPSULE.DR PO SCH (08:37)
[2016-11-12] MEDS: INSULIN DETEMIR 100 UNITS/ML, PEN SQ-INSULIN SCH (08:38)
[2016-11-12] MEDS: INSULIN ASPART 100 UNITS/ML, PEN SQ-INSULIN SCH ×4 (08:39→21:00)
[2016-11-12 13:43] VITALS: BP 123/77
[2016-11-12] MEDS ORDERED: ONDANSETRON 2MG/ML, 2ML IVPush PRN (19:00)
[2016-11-12] MEDS ORDERED: POLYETHYLENE GLYCOL 17 GM PACKET PO PRN (19:00)
[2016-11-12] MEDS ORDERED: LORazepam 2 MG/ML, 1ML IVPush PRN (19:00)
[2016-11-12] MEDS ORDERED: BISACODYL 10 MG SUPP PR PRN (19:00)
[2016-11-12 20:00] VITALS: BP 162/96
[2016-11-12] MEDS: ATORVASTATIN 40 MG TABLET PO SCH (21:26)
[2016-11-13 02:00] VITALS: BP 152/105
[2016-11-13 02:52] VITALS: BP 151/99
[2016-11-13] MEDS: ACETAMINOPHEN 325 MG TABLET PO PRN ×4 (02:54→20:37)
[2016-11-13 05:43] LABS: HEMATOCRIT 46.3 % (39.2-51.8); HEMOGLOBIN 15.3 g/dL (13.7-18.0); WHITE BLOOD COUNT 11.6 x10^3/uL (3.4-10)
[2016-11-13 06:00] LABS: BLOOD UREA NITROGEN 17 mg/dL (7-18)
[2016-11-13] MEDS: INSULIN ASPART 100 UNITS/ML, PEN SQ-INSULIN SCH ×4 (07:00→20:46)
[2016-11-13 07:15] VITALS: BP 151/93
[2016-11-13] MEDS: GABAPENTIN 100 MG CAPSULE PO SCH ×3 (09:14→20:36)
[2016-11-13] MEDS: DULOXETINE 30 MG CAPSULE.DR PO SCH (09:14)
[2016-11-13] MEDS: FAMOTIDINE 20 MG TABLET PO SCH ×2 (09:14→20:36)
[2016-11-13] MEDS: CLOPIDOGREL 75 MG TABLET PO SCH (09:14)
[2016-11-13] MEDS: metFORMIN 500 MG TABLET PO SCH ×2 (09:14→20:36)
[2016-11-13] MEDS: INSULIN DETEMIR 100 UNITS/ML, PEN SQ-INSULIN SCH (09:16)
[2016-11-13] MEDS: LEVETIRACETAM 500 MG TABLET PO SCH ×2 (11:11→20:37)
[2016-11-13 12:44] VITALS: BP 158/99
[2016-11-13 20:00] VITALS: BP 171/102
[2016-11-13] MEDS: ATORVASTATIN 40 MG TABLET PO SCH (20:36)
[2016-11-14 02:00] VITALS: BP 147/93
[2016-11-14 05:38] LABS: HEMATOCRIT 47.3 % (39.2-51.8); HEMOGLOBIN 15.7 g/dL (13.7-18.0); WHITE BLOOD COUNT 10.4 x10^3/uL (3.4-10)
[2016-11-14] MEDS: INSULIN ASPART 100 UNITS/ML, PEN SQ-INSULIN SCH ×2 (07:00→11:23)
[2016-11-14 07:08] VITALS: BP 150/98
[2016-11-14] MEDS: LEVETIRACETAM 500 MG TABLET PO SCH (09:06)
[2016-11-14] MEDS: GABAPENTIN 100 MG CAPSULE PO SCH (09:06)
[2016-11-14] MEDS: metFORMIN 500 MG TABLET PO SCH (09:06)
[2016-11-14] MEDS: DULOXETINE 30 MG CAPSULE.DR PO SCH (09:06)
[2016-11-14] MEDS: FAMOTIDINE 20 MG TABLET PO SCH (09:06)
[2016-11-14] MEDS: CLOPIDOGREL 75 MG TABLET PO SCH (09:06)
[2016-11-14] MEDS: INSULIN DETEMIR 100 UNITS/ML, PEN SQ-INSULIN SCH (09:08)
[2016-11-14] MEDS ORDERED: AMLO5TAB2 PO (10:18)
[2016-11-14] MEDS ORDERED: TRAM50TA2 PO (10:19)
[2016-11-14] MEDS ORDERED: AMLODIPINE 5 MG TABLET PO SCH (10:30)
[2016-11-14 12:00] VITALS: BP 149/92
== END 2016-11-14 13:15 | DRG 100 ==
LOC: ED 21:04 → EDIP 23:16 → 4EST 11-11 00:25
PROVIDERS: ADMIT Hospitalist; ATTEND Hospitalist
DX: G40.909 Epilepsy, unspecified, not intractable, without status epilepticus (principal); G93.41 Metabolic encephalopathy; E87.2 Acidosis; E44.0 Moderate protein-calorie malnutrition; E87.1 Hypo-osmolality and hyponatremia; E11.21 Type 2 diabetes mellitus with diabetic nephropathy; E11.40 Type 2 diabetes mellitus with diabetic neuropathy, unspecified; D72.829 Elevated white blood cell count, unspecified; E78.5 Hyperlipidemia, unspecified; I10 Essential (primary) hypertension; I25.10 Atherosclerotic heart disease of native coronary artery without angina pectoris; I69.320 Aphasia following cerebral infarction; F32.9 Major depressive disorder, single episode, unspecified; R00.0 Tachycardia, unspecified; G89.29 Other chronic pain; G31.9 Degenerative disease of nervous system, unspecified; Z68.27 Body mass index [BMI] 27.0-27.9, adult; Z95.5 Presence of coronary angioplasty implant and graft
CPT/HCPCS: 36415; 70450; 70551; 71010; 80048; 80053; 80307; 80329; 81003; 82140; 82962; 83036; 83605; 84439; 84443; 84484; 85025; 85610; 85730; 87040; 93005; 93306; 96365; 96375; J1815; J1953; G0480; J2060; J7030

== ENCOUNTER 2018-04-18 16:34 | Emergency (ER) | payer MEDICARE ==
[~2018-04-18] VITALS: Ht 170.2 cm; Wt 78.0 kg
[~2018-04-18 16:34] MED LIST changes: +AMLO-150 PO; +ASPI-496 PO; +ETOMIDATE 40 MG/20 ML ONE; +KETAMINE 100 MG/ML, 5ML ONE; +LEVO100T5 PO; +METF500T17 PO; -METF500T4 PO; +ROCURONIUM 10MG/ML,5ML ONE; +TRAM50TA2 PO
--- NOTE | 2018-04-18 16:40 | NUR ---
STORE ADMINISTRATOR: PT STRAIGHT BACK'ED TO TRAUMA 4 FROM [facility] D/T PT'S POOR APPEARANCE & LETHARGY
[2018-04-18 16:50] VITALS: BP 92/61
--- NOTE | 2018-04-18 16:50 | NUR ---
324 MG ASA CHEW GIVEN TO PT.
[2018-04-18] MEDS ORDERED: ASPIRIN 325 MG TABLET PO STA (16:53)
[2018-04-18] MEDS ORDERED: FENTANYL PF 100 MCG/2ML ONE (17:09)
[2018-04-18] MEDS ORDERED: VERAPAMIL 2.5 MG/ML, 2ML ONE (17:09)
[2018-04-18] MEDS ORDERED: TICAGRELOR 90 MG TABLET ONE (17:09)
[2018-04-18] MEDS ORDERED: BIVALIRUDIN 250 MG ONE (17:09)
[2018-04-18] MEDS ORDERED: MIDAZOLAM 1 MG/ML, 5ML ONE (17:09)
[2018-04-18] MEDS ORDERED: LIDOCAINE 1%, 20ML ONE (17:09)
--- NOTE | 2018-04-18 17:10 | NUR ---
PT REMAINS IN SEVERE DISTRESS. PALE, DELAYED CAP REFILL, VS NOTED. RESTLESS, C/O "IM DYING". PT PREPARED FOR INTUBATION. CODE DOCUMENATION INITIATED.
[2018-04-18] MEDS ORDERED: ROCURONIUM 10 MG/ML,10ML ONE (17:11)
[2018-04-18] MEDS ORDERED: KETAMINE 10 MG/ML, 20ML ONE (17:12)
[2018-04-18 17:15] LABS: INTERNATIONAL NORMALIZED RATIO 1.08 (0.93-1.1); PROTHROMBIN TIME 11.4 Seconds (9.6-11.5)
[2018-04-18 17:16] LABS: MEAN CORPUSCULAR HEMOGLOBIN 17.6 pg (27.5-34.5); MEAN CORPUSCULAR VOLUME 59.5 fL (81-97); MEAN PLATELET VOLUME 7.8 fL (7.4-10.4); PLATELET COUNT 573 x10^3/uL (130-400); RED CELL DISTRIBUTION WIDTH 17.8 % (9.4-14.8)
[2018-04-18 17:17] LABS: MEAN CORPUSCULAR HGB CONC 29.6 g/dL (33.2-36.2)
--- NOTE | 2018-04-18 17:17 | NUR ---
task RN note: EDMD Vanesa notified hgb 5.1, hct 17.2. primary RN virgilio notified.
[2018-04-18 17:26] LABS: MD YES
[2018-04-18 17:28] LABS: BAND#(MANUAL) 0.19 x10^3/uL; BANDS%(MANUAL) 1 % (0-7); EOS#(MANUAL) 0.19 x10^3/uL (0.0-0.4); EOS% (MANUAL) 1 % (1-7); LYMPHS% (MANUAL) 13 % (22-44); MONOS#(MANUAL) 0.38 x10^3/uL (0.3-2.7); MONOS% (MANUAL) 2 % (2-9); SEG#(MANUAL) 15.94 x10^3/uL (1.8-6.8); SEGS% (MANUAL) 83 % (42-75)
[2018-04-18] MEDS ORDERED: DOPAMINE/D5W PMX 250 ML ONE (17:28)
[2018-04-18 17:29] LABS: ANISOCYTOSIS 1+; HYPOCHROMIA 2+; MICROCYTOSIS 2+
[2018-04-18 17:30] LABS: <PLATELET ESTIMATE> INCREASED; OVALOCYTES 2+
[2018-04-18 17:31] LABS: LARGE PLATELETS 1+; POLYCHROMASIA 1+
--- NOTE | 2018-04-18 17:33 | NUR ---
BLOOD TRANSFUSION 1ST UNIT PRBC'S [id number] STARTED AT 1720. UNIT VERIFIED WITH LAURA ALLEN. INFUSION COMPLETE AT 1727. 2ND UNIT PRBC'S [id number] STARTED AT 1727. UNIT VERIFIED WITH LAURA MILLER. INFUSION COMPLETE AT 1733. SEE CODE DOCUMENTATION FOR VITAL SIGNS.
--- NOTE | 2018-04-18 17:34 | NUR ---
TIME OF 1734.
--- NOTE | 2018-04-18 17:40 | NUR ---
PT BROUGHT TO ROOM FROM ED LOBBY. EKG COMPLETED AT 1643 AND CODE CARDIAC INITIATED. 324 MG ASA GIVEN AT 1650. DR. CM CAME TO BEDSIDE TO DISCUSS POC FOR CATH. PT ANXIOUS AND NOTED TO HAVE SHALLOW BREATHING W/ UNSTABLE O2 SATS. 2 PIV'S INITIATED AND PT RECEIVED A TOTAL OF 2 L NS. PT GIVEN 100 MG KETAMINE AND 100 MG ROCURONIUM. IN PROCESS OF ATTEMPTING INTUBATION PT BECAME PULSELESS. CPR INITIATED. PT PULSE RETURNED AND 1ST UNIT BLOOD TRANSFUSED AT 1722. EPI DRIP INITIATED AT 1732. SECOND UNIT BLOOD STARTED AT 1732 AND PT CODED AGAIN. CPR INITIATED. TOD 1734.
--- NOTE | 2018-04-18 18:06 | NUR ---
SPOKE W/ MAXWELL FROM [facility]. REFERRAL NUMBER IS [id number]
[2018-04-18] MEDS ORDERED: CODE BLUE RESPONSE XX ONE (18:07)
[2018-04-18] MEDS ORDERED: EPINEPHRINE SYRINGE 0.1 MG/ML, 10ML ONE (18:07)
--- NOTE | 2018-04-18 18:09 | NUR ---
SPOKE W/ LIVIER PAYNE WHO STATES SHE SPOKE W/ REBEKAH FLOWERS, PT'S BROTHER IN LAW. PER KERRY PT'S BROTHER IN LAW STATES PT HAS SISTER MEENAKSHI WHO LIVES IN [place] BUT HE DOES NOT HAVE HER CONTACT INFORMATION W/ [facility]. PT'S BROTHER IN LAW STATES HE WILL CALL LIVIER PAYNE W/ PT'S SISTER'S INFORMATION. PT'S BROTHER IN LAW REBEKAH FLOWERS CAN BE REACHED AT [phone].
--- NOTE | 2018-04-18 18:24 | NUR ---
SPO[facility]/ [facility] WHO STATES PT IS NOT A [employer] OPERATOR'S CASE. CURRENTLY DOES NOT HAVE A CASE NUMBER FOR THIS RN. STATES WILL HAVE NUMBER AND WILL NOTIFY STAFF.
[2018-04-18] MEDS ORDERED: EPINEPHRINE 2 MG in SODIUM CHLORIDE 0.9% 248 ML IV PRN (18:30)
--- NOTE | 2018-04-18 18:32 | NUR ---
SEE CPR DATA SHEET
--- NOTE | 2018-04-18 18:34 | NUR ---
SEE VS SPREAD SHEET ON CHART.
== END 2018-04-18 19:11 | disposition expired ==
LOC: ED 17:20
DX: I24.9 Acute ischemic heart disease, unspecified (principal); I21.09 ST elevation (STEMI) myocardial infarction involving other coronary artery of anterior wall; D64.9 Anemia, unspecified; I10 Essential (primary) hypertension; F32.9 Major depressive disorder, single episode, unspecified; E11.9 Type 2 diabetes mellitus without complications
CPT/HCPCS: 31500; 36430; 71045; 80047; 82962; 84484; 85025; 85610; 85730; 86850; 86900; 86920; 92950; 93005; 99291; J0171; J1265; J2250; J3010; J3490; J7050; P9016; 86923; J0583